=== PATIENT | male | born 2000 | race Asian ===

== ENCOUNTER 2024-06-30 14:16 | Inpatient (IN) | payer BC ==
[2024-06-30 15:06] VITALS: BMI 23.8
[2024-06-30] MEDS ORDERED: Sodium Chloride 0.9% 1,000 ML IV SCH (17:00)
[2024-06-30] MEDS ORDERED: Meropenem 1 GM in Sodium Chloride 0.9% 100 ML IVPB SCH (17:00)
[2024-06-30] MEDS: Meropenem 500 MG in Sodium Chloride 0.9% 100 ML IVPB SCH (17:20)
[2024-06-30] MEDS: Meropenem 1 GM in Sodium Chloride 0.9% 100 ML IVPB SCH (17:23)
[2024-06-30] MEDS: Acetaminophen 325 MG TAB PO PRN (17:24)
[2024-06-30] MEDS: Sodium Bicarbonate 50 MEQ in Sodium Chloride 0.45% 1,000 ML IV SCH (17:59)
[2024-06-30] MEDS: Polyethylene Glycol 3350 17 GM Packet PO SCH (21:10)
[2024-07-01] MEDS: Meropenem 500 MG in Sodium Chloride 0.9% 100 ML IVPB SCH (02:15)
[2024-07-01 05:39] LABS: #Basophils 0.07 10x3/uL (0.0-0.2); %Basophils 0.7 % (0.0-1.0); %Eosinophils 1.5 % (0.0-10.0); %Lymphocytes 22.3 % (21.0-51.0); %Monocytes 7.8 % (0.0-10.0); %Neutrophils 64.1 % (42.0-75.0); Hematocrit 33.7 % (42.0-52.0); Hemoglobin 11.9 g/dL (14.0-18.0); Mean Corpuscular HGB CONC 35.3 g/dL (32.0-36.0); Mean Corpuscular Hemoglobin 33.2 pg (27.0-31.0); Mean Corpuscular Volume 94.1 fL (78.0-98.0); Mean Platelet Volume 9.7 fL (7.4-10.4); Platelet Count 223 10x3/uL (130-400); RBC Distribution Width 13.6 % (11.5-14.5); Red Blood Cell (RBC) Count 3.58 mill/uL (4.70-6.10)
[2024-07-01 05:57] LABS: ALT (SGPT) 23 U/L (8-55); AST (SGOT) 23 U/L (5-34); Albumin 2.5 g/dL (3.5-5.0); Alkaline Phosphatase 96 U/L (40-110); Anion Gap 16 mmol/L (10-20); BUN (Urea Nitrogen) 50 mg/dL (8.9-20.6); Bilirubin, Total 0.8 mg/dL (0.2-1.2); Calc. Creatinine Clearance 31 mL/min (70-130); Calcium 7.9 mg/dL (7.8-10.44); Carbon Dioxide 20 mmol/L (22-29); Chloride 104 mmol/L (98-107); Estimated GFR 26; Globulin 3.5 g/dL (2.4-3.5); Glucose 67 mg/dL (70-105); Sodium 135 mmol/L (136-145)
[2024-07-01] MEDS: Enoxaparin 30 MG (0.3 mL) SYRINGE SC SCH (08:13)
[2024-07-01 08:17] LABS: Creatinine, Urine 18.89 mg/dL (63-166)
[2024-07-01] MEDS: Senokot S 8.6-50 MG TAB PO SCH (09:18)
[2024-07-01] MEDS: Sodium Bicarbonate Tab 325 MG TAB PO SCH (15:20)
[2024-07-02 06:37] LABS: #Basophils 0.07 10x3/uL (0.0-0.2); %Basophils 1.1 % (0.0-1.0); %Eosinophils 2.7 % (0.0-10.0); %Lymphocytes 37.8 % (21.0-51.0); %Monocytes 9.1 % (0.0-10.0); %Neutrophils 45.8 % (42.0-75.0); Hematocrit 32.8 % (42.0-52.0); Hemoglobin 11.7 g/dL (14.0-18.0); Mean Corpuscular HGB CONC 35.7 g/dL (32.0-36.0); Mean Corpuscular Hemoglobin 33.4 pg (27.0-31.0); Mean Corpuscular Volume 93.7 fL (78.0-98.0); Mean Platelet Volume 9.5 fL (7.4-10.4); Platelet Count 317 10x3/uL (130-400); RBC Distribution Width 13.4 % (11.5-14.5)
[2024-07-02 06:55] LABS: Anion Gap 17 mmol/L (10-20); BUN (Urea Nitrogen) 40 mg/dL (8.9-20.6); Calc. Creatinine Clearance 33 mL/min (70-130); Calcium 8.2 mg/dL (7.8-10.44); Carbon Dioxide 24 mmol/L (22-29); Chloride 104 mmol/L (98-107); Estimated GFR 28; Glucose 76 mg/dL (70-105); Potassium 4.5 mmol/L (3.5-5.1); Sodium 140 mmol/L (136-145)
[2024-07-02] MEDS: Meropenem 1 GM in Sodium Chloride 0.9% 100 ML IVPB SCH (15:46)
[2024-07-03 05:55] LABS: #Basophils 0.06 10x3/uL (0.0-0.2); %Eosinophils 3.5 % (0.0-10.0); %Lymphocytes 44.9 % (21.0-51.0); %Monocytes 9.5 % (0.0-10.0); Hematocrit 33.4 % (42.0-52.0); Hemoglobin 11.6 g/dL (14.0-18.0); Mean Corpuscular HGB CONC 34.7 g/dL (32.0-36.0); Mean Corpuscular Hemoglobin 33.6 pg (27.0-31.0); Mean Corpuscular Volume 96.8 fL (78.0-98.0); Mean Platelet Volume 9.2 fL (7.4-10.4); Platelet Count 407 10x3/uL (130-400); RBC Distribution Width 13.2 % (11.5-14.5); Red Blood Cell (RBC) Count 3.45 mill/uL (4.70-6.10)
[2024-07-03 06:19] LABS: Anion Gap 15 mmol/L (10-20); BUN (Urea Nitrogen) 33 mg/dL (8.9-20.6); Calc. Creatinine Clearance 40 mL/min (70-130); Calcium 7.9 mg/dL (7.8-10.44); Carbon Dioxide 22 mmol/L (22-29); Chloride 106 mmol/L (98-107); Estimated GFR 35; Glucose 84 mg/dL (70-105); Potassium 4.6 mmol/L (3.5-5.1); Sodium 138 mmol/L (136-145)
[2024-07-03 07:54] VITALS: BP 116/72
[2024-07-03] MEDS: Ertapenem 1 GM in Sodium Chloride 0.9% 100 ML IVPB SCH (12:36)
[2024-07-03 15:34] VITALS: TEMP 98.9
== END 2024-07-03 16:23 | disposition home or self-care (01) | DRG 683 ==
LOC: T4-A 14:42
PROVIDERS: ADMIT Family Medicine; ATTEND Student in an Organized Health Care Education/Training Program
DX: N17.9 Acute kidney failure, unspecified (principal); E87.21 Acute metabolic acidosis; N12 Tubulo-interstitial nephritis, not specified as acute or chronic; K59.00 Constipation, unspecified; N18.9 Chronic kidney disease, unspecified; R31.9 Hematuria, unspecified; N28.1 Cyst of kidney, acquired
CPT/HCPCS: 36415; 74176; 76770; 80048; 80053; 81001; 82550; 82570; 83970; 84156; 84300; 85025; 86141; 96360; 96361; J1335; J2185

== ENCOUNTER 2024-09-17 08:35 | Day surgery (SDC) | payer BC ==
[2024-09-17] MEDS ORDERED: fentaNYL 50 mcg/mL 1 mL Vial ONE ×2 (08:38→08:40)
[2024-09-17] MEDS ORDERED: Lidocaine 1% PF 5 ML VIAL ONE (08:38)
[2024-09-17] MEDS ORDERED: Sodium Bicarbonate 2.5 MEQ/5 ML SDV ONE (08:39)
[2024-09-17] MEDS ORDERED: Midazolam HCl 2 mg/2 ml Vial ONE (08:39)
[2024-09-17] MEDS ORDERED: Lidocaine 1% w/Epinephrine 1:100K 20 ML VIAL ONE (08:39)
[2024-09-17 09:04] LABS: #Basophils 0.07 10x3/uL (0.0-0.2); %Basophils 1.1 % (0.0-1.0); %Eosinophils 3.3 % (0.0-10.0); %Lymphocytes 32.1 % (21.0-51.0); %Monocytes 5.8 % (0.0-10.0); %Neutrophils 57.4 % (42.0-75.0); Hemoglobin 12.9 g/dL (14.0-18.0); Mean Corpuscular HGB CONC 34.9 g/dL (32.0-36.0); Mean Corpuscular Hemoglobin 31.9 pg (27.0-31.0); Mean Corpuscular Volume 91.4 fL (78.0-98.0); Mean Platelet Volume 8.8 fL (7.4-10.4); Platelet Count 278 10x3/uL (130-400); RBC Distribution Width 13.8 % (11.5-14.5); Red Blood Cell (RBC) Count 4.05 mill/uL (4.70-6.10)
[2024-09-17 09:20] LABS: PTT 26.2 sec (22.9-36.1); Prothrombin Time 13.4 sec (12.0-14.7)
== END 2024-09-17 15:20 | disposition home or self-care (01) ==
LOC: CT 08:35
PROVIDERS: ATTEND Internal Medicine Nephrology
PROC: 0TB03ZX Excision of Right Kidney, Percutaneous Approach, Diagnostic (ICD-10-PCS; principal; 2024-09-17)
DX: N18.9 Chronic kidney disease, unspecified (principal); R80.9 Proteinuria, unspecified; R31.9 Hematuria, unspecified; E78.5 Hyperlipidemia, unspecified; N17.9 Acute kidney failure, unspecified; N10 Acute pyelonephritis; N20.0 Calculus of kidney; Z79.899 Other long term (current) drug therapy
CPT/HCPCS: 50200; 77012; 85025; 85610; 85730; 88329; J2250; J3010